=== PATIENT | female | born 1940 | race Caucasian/White ===

== ENCOUNTER → 2017-02-23 | Outpatient (CLI) | payer MEDICARE ==
[~2017-02-23] MED LIST: APIX5TAB PO; CARV6.25 PO; FLEC50TA2 PO; LEVO150T69 PO; METF500T4 PO; OXYB5TAB10 PO; QUIN40TA PO; SIMV20TA6 PO
== END ==
LOC: WC.BC 14:13
PROVIDERS: ATTEND Family Medicine
DX: D48.61 Neoplasm of uncertain behavior of right breast (principal); R92.1 Mammographic calcification found on diagnostic imaging of breast; N63 Unspecified lump in breast
CPT/HCPCS: 76642; G0204; G0279